=== PATIENT | female | born 1955 | race Caucasian/White ===

== ENCOUNTER 2020-03-04 09:32 | Observation (INO) ==
[~2020-03-04 09:32] MED LIST: Buffered Lidocaine 1% SYRIN 1 ml INTRADERM ONE; Bupivacaine 0.5% 50 ML MDV VIAL ONE; Lactated Ringers 1000 ml BAG 1,000 ML IV SCH; Methylene Blue 0.5 % 50 MG/10 ML AMP IV ONE
[2020-03-04] MEDS ORDERED: Buffered Lidocaine 1% SYRIN 1 ml INTRADERM ONE (10:03)
[2020-03-04] MEDS ORDERED: ceFAZolin 2 GM PREMIX 2 GM/50 ML BAG ONE (10:03)
[2020-03-04] MEDS ORDERED: Succinylcholine 200 mg VIAL 20 mg/ml 10 ml VIAL (200 mg) ONE (11:01)
[2020-03-04] MEDS ORDERED: Glycopyrrolate IV 0.2 MG/ML 1 ML VIAL ONE (11:01)
[2020-03-04] MEDS ORDERED: Propofol 10 MG/ML 20 ML BTL ONE (11:01)
[2020-03-04] MEDS ORDERED: Rocuronium 50 mg VIAL 10 mg/ml 5 ml VIAL (50 mg) ONE ×2 (11:02→12:11)
[2020-03-04] MEDS ORDERED: fentaNYL 100 mcg/2 ml 50 MCG/ML VIAL ONE ×3 (11:03→14:21)
[2020-03-04] MEDS ORDERED: Esmolol 10 MG/ML 10 ML (100 mg) ONE (11:08)
[2020-03-04] MEDS ORDERED: Metoprolol Tartrate 5 mg VIAL 5 ml VIAL (1 mg/ml) ONE (11:22)
[2020-03-04] MEDS ORDERED: Ondansetron 4 mg VIAL 2 MG/ML 2 ml VIAL ONE (11:47)
[2020-03-04] MEDS ORDERED: Dexamethasone IV 4 MG/ML VIAL 1 ml VIAL ONE (11:47)
[2020-03-04] MEDS ORDERED: Naloxone 0.4 mg VIAL 0.4 mg/ml 1 ml VIAL IV PRN (12:08)
[2020-03-04] MEDS ORDERED: Ondansetron 4 mg VIAL 2 MG/ML 2 ml VIAL IV PRN (12:08)
[2020-03-04] MEDS: fentaNYL 100 mcg/2 ml 50 MCG/ML VIAL IV PRN ×5 (13:42→14:23)
[2020-03-04] MEDS: Piperacillin/Tazobactam VIAL 3.375 GM in NS 0.9% 100 ml BAG 100 ML IVPB SCH ×2 (16:12→23:58)
[2020-03-04] MEDS: NS 0.9% 1000 ml BAG 1,000 ML IV SCH (16:12)
[2020-03-04] MEDS: HYDROmorphone 1 MG/1 ML SYRINGE IV SLOW PU PRN (20:06)
[2020-03-04] MEDS: Ondansetron 4 mg VIAL 2 MG/ML 2 ml VIAL IV PRN (20:07)
[2020-03-05] MEDS: NS 0.9% 1000 ml BAG 1,000 ML IV SCH ×2 (01:54→11:59)
[2020-03-05 05:47] LABS: ABS Basophils 0.1 10^3/ul (0-0.2); ABS Eosinophils 0.1 10^3/ul (0-0.6); ABS Lymphocytes 2.1 10^3/ul (1.0-4.8); ABS Monocytes 0.7 10^3/ul (0-0.8); Eosinophil % 0.6 %; Hematocrit 37 % (35-47); Hemoglobin 12.2 g/dL (12.0-16.0); Lymphocyte % 21.1 %; Mean Corpuscular HGB Conc 33 g/dL (31-36); Mean Corpuscular Hemoglobin 27 pg (27-31); Mean Corpuscular Volume 83 fL (80-97); Platelet Count 188 10^3/uL (150-450); Red Blood Count 4.47 10^6 /uL (3.70-4.87); Red Cell Distribution Width 16 % (10-15)
[2020-03-05 06:06] LABS: Albumin 3.6 g/dL (3.2-5.2); Albumin/Globulin Ratio 1.1 (1-3); BUN/Creatinine Ratio 13.9 (8-20); Calcium 8.5 mg/dL (8.6-10.3); EGFR African American 89.2 (>60); EGFR Non-African American 73.7 (>60); Globulin 3.2 g/dL (2-4); Total Protein 6.8 g/dL (6.4-8.9)
[2020-03-05 07:04] LABS: Potassium 4.5 mmol/L (3.5-5.0)
[2020-03-05] MEDS: Piperacillin/Tazobactam VIAL 3.375 GM in NS 0.9% 100 ml BAG 100 ML IVPB SCH (07:51)
[2020-03-05 09:11] LABS: Indirect Bilirubin 0.8 mg/dL (0.3-1.0)
[2020-03-05] MEDS: HYDROmorphone 1 MG/1 ML SYRINGE IV SLOW PU PRN (10:48)
[2020-03-05] MEDS: Ondansetron 4 mg VIAL 2 MG/ML 2 ml VIAL IV PRN (10:48)
[2020-03-05 15:11] VITALS: BP 155/70
== END 2020-03-05 16:35 | disposition home or self-care (01) ==
LOC: OR 09:32 → SSU 09:32
PROVIDERS: ADMIT Physician Assistant Medical; ATTEND Surgery